=== PATIENT | male | born 1955 | race Caucasian/White ===

== ENCOUNTER → 2017-11-17 | Outpatient (CLI) | payer OTHER ==
--- NOTE | 2017-11-17 16:44 | PCVCIMAG ---
APPROVED REPORT Study performed: 11/17/2017 14:25:02 EXAM: Comprehensive 2D, Doppler, and color-flow Echocardiogram Patient Location: Echo lab Room #: 3 BSA: 1.90 HR: 57 bpmBP: 124/66 mmHg Rhythm: Bradycardia Other Information Study Quality: Good Indications Aortic Valve Disease Palpitations PVCs Bicuspid Aortic Valve 2D Dimensions LVEF(%): 42.00 (>50%) IVSd: 7.63 (7-11mm)LVOT Diam: 23.45 (18-24mm) LVDd: 58.34 mm PWd: 10.40 (7-11mm)Ascending Ao: 36.24 (22-36mm) LVDs: 46.11 (25-40mm) Left Atrium: 37.25 (27-40mm) Aortic Root: 29.97 mm LV Single Plane 4CH: 60.61 % LV Single Plane 2CH: 62.65 %Palmer's LVEF: 61.63 % Biplane EF: 61.8 % Volumes Left Atrial Volume (Systole) Single Plane 4CH: 38.17 mLSingle Plane 2CH: 62.70 mL Biplane LA Volume: 54.00 mLLA ESV Index: 28.00 mL/m2 Aortic Valve AoV Peak Michael.: 1.88 m/s AO Peak Gr.: 13.23 mmHgLVOT Max P.56 mmHg AO Mean Gr.: 7.49 mmHgLVOT Mean P.52 mmHg AO V2 Mean: 1.32 m/sLVOT Max V: 1.00 m/s AO V2 VTI: 38.97 cm ALAINA (VTI): 2.47 [id number] V1 VTI: 22.27 cm ALAINA Vmax: 2.31 cm2 Mitral Valve E/A Ratio: 1.0 MV Decel. Time: 149.88 ms MV E Max Michael.: 0.67 m/s MV A Michael.: 0.67 m/s MV PHT: 43.47 ms IVRT: 134.95 ms TDI E/Lateral E': 9.57E/Medial E': 7.44 Medial E' Michael.: 0.09 m/s Lateral E' Michael.: 0.07 m/s Pulmonary Valve PV Peak Michael.: 0.88 m/sPV Peak Gr.: 3.13 mmHg Pulmonary Vein P Vein S: 0.75 m/sP Vein A: 0.61 m/s P Vein D: 0.55 m/sP Vein A Dur.: 107.3 msec P Vein S/D Ratio: 1.36 Tricuspid Valve TR Peak Michael.: 2.14 m/s TR Peak Gr.: 18.25 mmHg TV Vmax: 0.68 m/sPA Pressure: 25.00 mmHg Left Ventricle Left ventricle is borderline dilated. There is normal LV segmental wall motion. There is normal left ventricular wall thickness. Left ventricular systolic function is normal. The left ventricular ejection fraction is within the normal range. LVEF is 60-65%. The left ventricular diastolic function is normal. Right Ventricle The right ventricle is normal size. The right ventricular systolic function is normal. Atria The left atrium size is normal. The right atrium size is normal. Aortic Valve Aortic valve is bicuspid. Aortic valve leaflets are minimally sclerotic but open well. No aortic regurgitation is present. There is no aortic valvular stenosis. Mitral Valve The mitral valve is normal in structure. Trace mitral regurgitation. No evidence of mitral valve stenosis. Tricuspid Valve The tricuspid valve is normal in structure. Mild tricuspid regurgitation with a PA pressure of 25 mmHg No apparent pulmonary hypertension.. Pulmonic Valve The pulmonary valve is normal in structure. There is no pulmonic valvular regurgitation. Great Vessels The aortic root is normal in size. Aortic arch is not well visualized. Ascending aorta is not well visualized. IVC is normal in size and collapses with >50% inspiration Pericardium There is no pericardial effusion. There is no pleural effusion. <Conclusion> Left ventricle is borderline dilated. Left ventricular systolic function is normal. The left ventricular ejection fraction is within the normal range. LVEF is 60-65%. The left ventricular diastolic function is normal. The left atrium size is normal. Aortic valve is bicuspid. Aortic valve leaflets are minimally sclerotic but open well. No aortic regurgitation is present. There is no aortic valvular stenosis. Trace mitral regurgitation. Mild tricuspid regurgitation with a PA pressure of 25 mmHg No apparent pulmonary hypertension.. There is no pericardial effusion.
== END | disposition home or self-care (01) ==
LOC: PCVCIMAG 14:02
PROVIDERS: ATTEND Internal Medicine Cardiovascular Disease
DX: I12.9 Hypertensive chronic kidney disease with stage 1 through stage 4 chronic kidney disease, or unspecified chronic kidney disease (principal); E78.00 Pure hypercholesterolemia, unspecified; M34.9 Systemic sclerosis, unspecified; N18.9 Chronic kidney disease, unspecified; Q23.1 Congenital insufficiency of aortic valve; Z87.891 Personal history of nicotine dependence; Z79.82 Long term (current) use of aspirin; Z79.899 Other long term (current) drug therapy
CPT/HCPCS: 93005; 93306

== ENCOUNTER → 2018-11-10 | Outpatient (CLI) | payer OTHER ==
--- NOTE | 2018-11-10 15:58 | PCVCIMAG ---
APPROVED REPORT Study performed: 11/10/2018 14:38:12 EXAM: Comprehensive 2D, Doppler, and color-flow Echocardiogram Patient Location: Echo lab Status: routine BSA: 1.91 HR: 71 bpmBP: 120/74 mmHg Rhythm: NSR Other Information Study Quality: Good Risk Factors: Cardiac Risk Factors: HTN Indications Hypertension/HDD Biscuspid Aortic Valve, Scleroderma, Renal Disease 2D Dimensions IVSd: 11.33 (7-11mm)LVOT Diam: 24.27 (18-24mm) LVDd: 53.67 mm PWd: 9.92 (7-11mm)Ascending Ao: 41.92 (22-36mm) LVDs: 48.21 (25-40mm) Left Atrium: 24.21 (27-40mm) Aortic Root: 34.82 mm LV Single Plane 4CH: 47.71 % LV Single Plane 2CH: 50.58 % Biplane EF: 49.1 % Volumes Left Atrial Volume (Systole) Single Plane 4CH: 43.05 mLSingle Plane 2CH: 57.69 mL LA ESV Index: 27.00 mL/m2 Aortic Valve AoV Peak Michael.: 1.62 m/s AO Peak Gr.: 10.50 mmHgLVOT Max P.41 mmHg AO Mean Gr.: 6.20 mmHgLVOT Mean P.50 mmHg AO V2 Mean: 1.22 m/sLVOT Max V: 0.78 m/s AO V2 VTI: 29.92 cmLVOT Mean V: 0.60 m/s ALAINA (VTI): 2.36 [id number] V1 VTI: 15.25 cm ALAINA Vmax: 2.22 cm2 SV (LVOT): 70.50 mL Mitral Valve E/A Ratio: 0.7 MV Decel. Time: 363.90 ms MV E Max Michael.: 0.40 m/s MV A Michael.: 0.55 m/s TDI E/Lateral E': 6.67E/Medial E': 6.67 Medial E' Michael.: 0.06 m/s Lateral E' Michael.: 0.06 m/s Pulmonary Valve PV Peak Gr.: 0.66 mmHg Tricuspid Valve TR Peak Michael.: 2.13 m/s TR Peak Gr.: 18.14 mmHg Left Ventricle Left ventricle is borderline dilated. There is normal LV segmental wall motion. There is normal left ventricular wall thickness. Left ventricular systolic function is normal. The left ventricular ejection fraction is within the normal range. LVEF is 55-60%. The left ventricular diastolic function is normal. Right Ventricle The right ventricle is normal size. The right ventricular systolic function is normal. Atria The left atrium size is normal. The right atrium size is normal. Aortic Valve Bicuspid Aortic Valve. Peak gradient 11mmhg. Mean gradient is 6mmHg. Minimal calcification. No aortic regurgitation is present. There is no aortic valvular stenosis. Mitral Valve The mitral valve is normal in structure. There is no mitral valve regurgitation noted. No evidence of mitral valve stenosis. Tricuspid Valve The tricuspid valve is normal in structure. Trace tricuspid regurgitation. Pulmonary artery pressure is 26mmHg. Pulmonic Valve The pulmonary valve is normal in structure. Trace pulmonic regurgitation. Great Vessels The aortic root is normal in size. IVC is normal in size and collapses >50% with inspiration. Pericardium There is no pericardial effusion. <Conclusion> Left ventricle is borderline dilated. LVEF is 55-60%. The left ventricular diastolic function is normal. The right ventricle is normal size. Bicuspid Aortic Valve. Peak gradient 11mmhg. Mean gradient is 6mmHg. Minimal calcification. There is no mitral valve regurgitation noted. There is no mitral valve regurgitation noted. The aortic root is normal in size. There is no pericardial effusion.
== END | disposition home or self-care (01) ==
LOC: PCVCIMAG 14:44
PROVIDERS: ATTEND Internal Medicine Cardiovascular Disease
DX: I10 Essential (primary) hypertension (principal); Q23.1 Congenital insufficiency of aortic valve; M34.9 Systemic sclerosis, unspecified
CPT/HCPCS: 93306

== ENCOUNTER → 2018-11-29 | Outpatient (CLI) | payer OTHER ==
--- NOTE | 2018-12-03 11:56 | PCVCIMAG ---
APPROVED REPORT Study performed: 11/29/2018 10:35:37 Exam: Stress Echocardiogram Indication: Hyperlipidemia, Hypertension Patient Location: Echo lab Stress Nurse: Yaz Riley RN Status: routine Ht: 5 ft 9 in HR: 71 bpm BP: 117/78 mmHg Rhythm: NSR Medical History Medical History: Biscupid aortic Valve, Raynauds, Renal disease Procedure The patient underwent an Exercise Stress Test using the Jun Protocol. Blood pressure, heart rate, and EKG were monitored. An Echocardiogram was performed by electrical maintenance technician in four stages in quad fashion. At peak stress, four selected images were obtained and placed side by side with resting images for comparison. Stress Test Details Stress Test: Exercise stress testing was performed using a Jun protocol. HR Resting HR: 71 bpmMax Heart Rate (APMHR): 155 bpm Max HR Achieved: 153 bpmTarget HR (85% APMHR): 131 bpm % of APMHR: 98 Recovery HR: 76 bpm HR response to stress: Normal HR response to stress BP Resting BP: 117/78 mmHg Max BP: 160/74 mmHg Recovery BP: 138/74 mmHg BP response to stress: Normal blood pressure response to stress. ECG Resting ECG: Sinus Rhythm Stress ECG: Sinus Rhythm Arrhythmia: VPC's Recovery ECG: Sinus Rhythm Clinical Reason for Termination: Maximal effort, Dyspnea Exercise duration: 7 min 40 sec Highest Stage Achieved: Stage 3: 3.4 mph at 14% grade. Exercise capacity: 10.10 METs Overall Exercise Capacity for Age: Normal Pre-Stress Echo The resting Echocardiogram showed normal left ventricular contractility with an estimated Ejection Fraction of about 50-55%. Normal wall motion in all segments on baseline images. Post-Stress Echo The stress Echocardiogram showed normal left ventricular contractility with an estimated Ejection Fraction of about 55-60%. Normal augmentation of wall motion in all segments on post stress images. Clinical No clinical or ECG evidence for ischemia. Conclusion Clinical Response: Non-ischemic Exercise Capacity: Average Stress ECG Response: Non-ischemic Stress Echo Images: Non-ischemic The left ventricle is normal in size and wall thickness in both the rest and stress images. Biscuspid Aortic Valve. Dilated Ascending measuring up to 4.4cm. <Conclusion> The left ventricle is normal in size and wall thickness in both the rest and stress images. Biscuspid Aortic Valve. Dilated Ascending measuring up to 4.4cm.
== END | disposition home or self-care (01) ==
LOC: PCVCIMAG 10:33
PROVIDERS: ATTEND Internal Medicine Cardiovascular Disease
DX: I10 Essential (primary) hypertension (principal); E78.00 Pure hypercholesterolemia, unspecified; E78.5 Hyperlipidemia, unspecified; I73.00 Raynaud's syndrome without gangrene
CPT/HCPCS: 93325; 93351